=== PATIENT | female | born 1955 | race African-American/Black ===

== ENCOUNTER 2018-10-21 17:22 | Emergency (ER) | payer OTHER ==
[~2018-10-21] VITALS: Ht 162.6 cm; Wt 75.7 kg
[2018-10-21] MEDS ORDERED: SODIUM CHLORIDE 0.9% 500 ML IV ONE (19:00)
[2018-10-21 19:06] LABS: Urine Bacteria FEW /hpf (None Seen); Urine Blood 2+ /uL (Negative); Urine Hyaline Cast FEW /lpf (0 - 2); Urine Specific Gravity 1.023 (1.001-1.035); Urine WBC 10 /hpf (0 - 5)
[2018-10-21] MEDS ORDERED: ONDANSETRON HCL 4 MG/2 ML VIAL IV ONE (19:15)
[2018-10-21] MEDS ORDERED: FLEET ENEMA(ADULT) 135 ML PR ONE (20:00)
[2018-10-21] MEDS ORDERED: cefTRIAXone 1GM/50ML D5W 50 ML IV ONE (20:30)
[2018-10-21 21:49] LABS: Eosinophils # (auto) 0 uL
[2018-10-21 21:51] LABS: Basophils # (auto) 0.1 uL; Eosinophils % (auto) 0.1 % (0.0-7.0); Hematocrit 24.7 % (36.0-46.0); Hemoglobin 7.9 g/dL (12.2-16.2); Lymphocytes # (auto) 1.6 uL; Lymphocytes % (auto) 15.5 % (10.0-50.0); Mean Corpuscular Hemoglobin 29.3 pg (28.0-32.0); Mean Corpuscular Hgb Conc. 32.1 g/dL (32.0-36.0); Mean Corpuscular Volume 91.1 fL (80.0-100.0); Monocytes # (auto) 0.8 uL; Monocytes % (auto) 7.2 % (0.0-12.0); Neutrophils % (auto) 76.2 % (37.0-80.0); Platelet Count (auto) 513 10^3/uL (140-450); Red Blood Cells 2.71 10^6/uL (4.0-5.20); White Blood Cell 10.5 10^3/uL (4.4-10.8)
[2018-10-21] MEDS ORDERED: MORPHINE SULFATE 4 MG/ML SYR/VIAL IV ONE (22:00)
[2018-10-21 22:06] LABS: Red Cell Distribution Width 20.8 % (11.8-14.3)
[2018-10-21 22:07] LABS: Albumin 2.1 g/dL (3.4-5.0); BUN/Creatinine Ratio 14.4; Calcium 7.6 mg/dL (8.5-10.1)
[2018-10-21 22:15] LABS: Potassium 5.8 mmol/L (3.5-5.1)
[2018-10-21 22:21] LABS: Bilirubin, Total 3.5 mg/dL (0.2-1.0); Total Protein 5.3 g/dL (6.4-8.2)
[2018-10-21 23:35] VITALS: BP 101/35
== END 2018-10-22 00:32 | disposition short-term general hospital (02) ==
LOC: ER 17:28
DX: K56.41 Fecal impaction (principal); N39.0 Urinary tract infection, site not specified; E11.9 Type 2 diabetes mellitus without complications; Z85.05 Personal history of malignant neoplasm of liver
CPT/HCPCS: 36415; 71045; 74176; 80053; 81001; 85025; 96374; 99284; J2270; J2405